=== PATIENT | male | born 1970 | race Caucasian/White ===

== ENCOUNTER 2020-11-23 08:50 | Day surgery (SDC) | payer OTHER ==
[~2020-11-23] VITALS: Ht 172.7 cm; Wt 97.3 kg
[~2020-11-23 08:50] MED LIST: CRUTCH3 USE; HYDACE5 PO; NAPR500 PO; OLME20 PO
[2020-11-23] MEDS ORDERED: ACTOS30 MG PO (10:36)
[2020-11-23] MEDS ORDERED: METFORMIN HCL1000 M6 PO (10:36)
[2020-11-23] MEDS ORDERED: LOSA50 PO (10:37)
[2020-11-23] MEDS ORDERED: HYDROCODONE-AC1 EAC7 PO (10:37)
--- NOTE | 2020-11-23 11:26 | NUR ---
11/23/20 1126 Katherine Zarate PATIENT DETERMINED TO BE ASA APPROPRIATE FOR MODERATE SEDATION PRIOR TO START OF PROCEDURE BY DR. YOUNG. 3-LEAD EKG REVIEWED WITH PHYSICIAN PRIOR TO START OF PROCEDURE. PATIENT CONFIRMS NPO STATUS AND AGREES WITH SCHEDULED PROCEDURE. History, Chart, Medications and Allergies reviewed before start of procedure. MONITOR INTACT WITH CONTINUOUS PULSE OXIMETRY AND INTERMITTENT BP. O2 VIA N/C INTACT THROUGHOUT SEDATION/PROCEDURE.
--- NOTE | 2020-11-23 12:30 | NUR ---
Patient up to Ambulate independently. Gait steady. Discharge instructions reviewed with patient. Patient verbalizes understanding. Copy given to patient to take home. Patient States Post-Procedure ride home has been arranged. Discharged via wheelchair to private car for ride home. ALL BELONINGS RETURNED TO PATIENT.
== END 2020-11-23 12:20 | disposition home or self-care (01) ==
LOC: ORSCMMR 08:50 → ORD 10:00 → ORSCMMR 12:20
PROVIDERS: Internal Medicine Gastroenterology
PROC: 0DBL8ZX Excision of Transverse Colon, Via Natural or Artificial Opening Endoscopic, Diagnostic (ICD-10-PCS; principal; 2020-11-23 10:00)
DX: Z12.11 Encounter for screening for malignant neoplasm of colon (principal); D12.3 Benign neoplasm of transverse colon; E11.9 Type 2 diabetes mellitus without complications; I10 Essential (primary) hypertension; G47.30 Sleep apnea, unspecified; Z79.84 Long term (current) use of oral hypoglycemic drugs; Z79.899 Other long term (current) drug therapy
CPT/HCPCS: 82947; 88305; J2250; J3010; J7120

== ENCOUNTER → 2021-05-31 | Outpatient (CLI) | payer OTHER ==
[~2021-05-31] MED LIST changes: +ACTOS30 MG PO; +HYDROCODONE-AC1 EAC7 PO; +LOSA50 PO; +METFORMIN HCL1000 M6 PO
== END | disposition home or self-care (01) ==
LOC: LAB SHORT 10:52 → LAB 10:52
DX: R07.9 Chest pain, unspecified (principal)
CPT/HCPCS: 84484; 85379

== ENCOUNTER 2025-09-27 08:20 | Day surgery (SDC) | payer OTHER ==
[~2025-09-27] VITALS: Ht 172.7 cm; Wt 91.5 kg
[~2025-09-27 08:20] MED LIST changes: +RYBELSUS7 MG PO
[2025-09-27] MEDS ORDERED: CeFAZolin Sodium 2,000 MG VIAL ONE (08:24)
[2025-09-27] MEDS ORDERED: JARDIANCE25 MG PO (08:57)
[2025-09-27] MEDS ORDERED: MOUNJARO12.5 MG/0. SC (08:58)
[2025-09-27] MEDS ORDERED: MULTIPLE VITAM1 EACH PO (09:00)
[2025-09-27] MEDS ORDERED: MAGNESIUM CITR100 MG PO (09:06)
[2025-09-27] MEDS ORDERED: FentaNYL Citrate 50 MCG/ML 2 ML Injection ONE (09:33)
[2025-09-27] MEDS ORDERED: Bupivacaine 0.5% HCl 5 MG/ML 30MLVIAL XX ONE (10:15)
[2025-09-27] MEDS ORDERED: Ketorolac Tromethamine 30mg Vial ONE (10:42)
[2025-09-27] MEDS ORDERED: HYDROmorphone HCl/Pf 1MG SYR ONE ×2 (10:53→11:36)
[2025-09-27] MEDS ORDERED: Dexamethasone Sod Phos 10 MG/ML 1ML VIAL ONE (12:32)
[2025-09-27] MEDS ORDERED: Ondansetron HCl 2 MG / ML 2ML Vial ONE (12:32)
--- NOTE | 2025-09-27 12:46 | NUR ---
09/27/25 1246 SHIR[address] DALE TRIAL FROM 10L O2 NON-REBREATHER, TO 6L O2 SAT 100%
[2025-09-27 12:58] VITALS: BP 124/86
--- NOTE | 2025-09-27 13:00 | NUR ---
09/27/[address] IN SPEAKING WITH PT ABOUT SURGERY, OUTCOME.
== END 2025-09-27 13:45 | disposition home or self-care (01) ==
LOC: ORSCSDS 08:20
PROVIDERS: Orthopaedic Surgery
PROC: 0JNJ0ZZ Release Right Hand Subcutaneous Tissue and Fascia, Open Approach (ICD-10-PCS; principal; 2025-09-27 09:45)
DX: M72.0 Palmar fascial fibromatosis [Dupuytren] (principal); M79.641 Pain in right hand; I10 Essential (primary) hypertension; E11.9 Type 2 diabetes mellitus without complications; K21.9 Gastro-esophageal reflux disease without esophagitis; G47.33 Obstructive sleep apnea (adult) (pediatric); Z79.899 Other long term (current) drug therapy; Z79.84 Long term (current) use of oral hypoglycemic drugs; Z79.85 Long-term (current) use of injectable non-insulin antidiabetic drugs
CPT/HCPCS: 82947; J0690; J1100; J1171; J1885; J2003; J2405; J2704; J3010; J7120